=== PATIENT | male | born 1980 | race Caucasian/White ===

== ENCOUNTER 2023-11-08 20:13 | Emergency (ER) | payer BC, SELFPAY ==
[2023-11-08 20:23] VITALS: BP 144/92; PULSE 88; RESP 16; TEMP 36.4; O2SAT 97; BMI 28.8
--- NOTE | 2023-11-08 21:07 | ED.GENADULT ---
HPI - General Adult General Chief complaint: Laceration/Wound Stated complaint: laceration on left knee w/ chainsaw Time Seen by Provider: 11/08/23 20:16 Source: patient Mode of arrival: ambulatory Limitations: no limitations History of Present Illness HPI narrative: 43-year-old male coming in today with a laceration to the left knee. Patient was using a chainsaw to cut down some branches when he slipped and the chainsaw hit him in the leg. He is able to walk. He denies any other injury. Tetanus was updated in 2019. Related Data Home Medications ?Medication ?Instructions ?Recorded ?Confirmed albuterol sulfate 90 mcg/actuation inhalation 06/05/23 09/17/23 aerosol inhaler fexofenadine 180 mg tablet 180 mg PO DAILY 06/05/23 09/17/23 fluticasone 250 mcg-salmeterol 50 1 ea inhalation BID 06/05/23 09/17/23 mcg/dose blistr powdr for inhalation (Wixela Inhub) Previous Rx's ?Medication ?Instructions ?Recorded fluticasone propionate 50 1 spray intranasal BID #16 grams 09/17/23 mcg/actuation nasal spray,suspension (Flonase Allergy Relief) prednisone 20 mg tablet See Rx Instructions PO QDAY Cough 09/17/23 #12 tabs cephalexin 500 mg capsule 500 mg PO QID 5 days #20 caps 11/08/23 Allergies Allergy/AdvReac Type Severity Reaction Status Date / Time Penicillins Allergy Unknown Verified 09/17/23 14:51 Review of Systems Status of ROS: Reports: 6 or more systems reviewed and unremarkable except as noted in History and below Exam Narrative: Exam Narrative: Well-nourished well-developed patient in no acute distress. Alert and oriented. Answers questions appropriately. Mood and affect are appropriate. Thoughts are goal oriented and rational. No tangential or magical thinking noted. Patient speaks in full sentences without needing to catch his breath. HEENT: Normocephalic atraumatic. Pupils are equally round reactive to light. Extraocular muscles are intact. Conjunctivae are moist without any icterus noted. Moist mucous membranes. Extremities: Patient has an approximately 3 in laceration across the patella of the left knee. The laceration goes through the dermis into the subcutaneous tissue. The patella is visible. Suprapatellar and infrapatellar tendons appear to be intact. Patient has full range of motion of the knee with flexion and extension. Skin: Well perfused without any obvious rashes. Const: Vital Signs, click to edit/add: Vital Signs - 24 hr 11/08/23 20:23 Temperature 97.5 F L Pulse Rate [Pulse Oximeter] 88 Respiratory Rate 16 Blood Pressure [Ri ght Upper Arm] 144/92 H Pulse Oximetry 97 Oxygen Delivery Me thod Room Air Course Course ED Course: The area was anesthetized with 2% lidocaine. The wound was cleaned and explored. Three subcutaneous sutures were placed with 3 0 Vicryl followed by 11 sutures with 3-0 Ethilon. Patient tolerated the procedure well. Vital Signs Vital signs: Initial Vital Signs Temperature 97.5 F L 11/08/23 20:23 Temperature Source Temporal Artery Scan 11/08/23 20:23 Pulse Rate 88 11/08/23 20:23 Respiratory Rate 16 11/08/23 20:23 Blood Pressure 144/92 H 11/08/23 20:23 Blood Pressure Mean 109 H 11/08/23 20:23 Blood Pressure Position Sitting 11/08/23 20:23 Pulse Oximetry 97 11/08/23 20:23 Oxygen Delivery Method Room Air 11/08/23 20:23 Vital Signs Temperature 97.5 F L 11/08/23 20:23 Pulse Rate 88 11/08/23 20:23 Respiratory Rate 16 11/08/23 20:23 Blood Pressure 144/92 H 11/08/23 20:23 Pulse Oximetry 97 11/08/23 20:23 Oxygen Delivery Method Room Air 11/08/23 20:23 Temperature 97.5 F L 11/08/23 20:23 Pulse Rate 88 11/08/23 20:23 Respiratory Rate 16 11/08/23 20:23 Blood Pressure 144/92 H 11/08/23 20:23 Pulse Oximetry 97 11/08/23 20:23 Oxygen Delivery Method Room Air 11/08/23 20:23 Medical Decision Making MDM Narrative Medical decision making narrative: Large laceration to the knee sutured per above. Discharge Plan Discharge Clinical Impression: Laceration Patient Disposition: Home, Self-Care Condition: Improved Additional Instructions: Keep wound clean and dry. Do not soak such as taking baths or swimming. Follow-up in approximately 1 week for suture removal with your primary care provider. Watch for signs and symptoms of infection including increasing redness of the area, purulent drainage, or fever. If this occurs follow-up right away with your doctor or return to the ER. This will be unlikely as you will be prescribed antibiotics today which should be started tomorrow morning. Wear Chacho wrap around the knee at all times to decreased mobility of the knee. Prescriptions: New cephalexin 500 mg capsule 500 mg PO QID 5 Days Qty: 20 0RF No Action fluticasone propion-salmeterol [Wixela Inhub] 250-50 mcg/dose blister with device 1 ea inhalation BID fexofenadine 180 mg tablet 180 mg PO DAILY albuterol sulfate 90 mcg/actuation HFA aerosol inhaler inhalation fluticasone propionate [Flonase Allergy Relief] 50 mcg/actuation spray,suspension 1 spray intranasal BID Qty: 16 0RF Rx Instructions: administer into each nostril prednisone 20 mg tablet See Rx Instructions PO QDAY Qty: 12 0RF Rx Instructions: 3 po as single dose days 1-2, 2 po as single dose days 3-4, 1 po days 5-6, then discontinue. Follow Up/Referrals: Camille Sarmiento DO [Primary Care Provider] - Stand Alone Forms: [employer] Info Instructions
--- OUTSIDE RECORDS SUMMARY | 2023-11-08 21:26 | XMS_ITS | Clinical Summary ---
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 Active fluticasone propion-salmeteroL (Advair Diskus) 250-50 mcg/Dose diskus inhalerIndications:A sthma, mild intermittent, well-controlled Inhale 1 Puff by mouth two times daily. 180 Each 3 05/26/2023 Active albuterol HFA (Ventolin HFA) 90 mcg/actuation inhalerIndications:A sthma, mild intermittent, well-controlled Inhale 1-2 Puffs by mouth every 4 hours if needed for Shortness of Breath 1st choice. 18 g 3 07/07/2023 Active albuterol 0.083% (2.5 mg/3 mL) neb solutionIndications: Asthma, mild intermittent, well-controlled Inhale 3 mL (2.5 mg) via a nebulizer every 6 hours if needed for Shortness Of Breath, Wheezing or Cough. 100 mL 07/07/2023 Active omeprazole (PriLOSEC OTC) 20 mg tabletIndications:Ch ronic GERD Take 1 Tablet (20 mg) by mouth once daily. 90 Tablet 3 07/07/2023 Active omeprazole (PRILOSEC) 20 mg Delayed-Release capsuleIndications:C hronic GERD Take 1 Capsule (20 mg) by mouth once daily before a meal. Take 30 minutes prior to a meal 90 Capsule 3 07/08/2023 Active fexofenadine (INES) 180 mg tabletIndications:Se asonal allergic rhinitis, unspecified trigger TAKE 1 TABLET BY MOUTH EVERY DAY WITH FOOD 90 Tablet 3 09/29/2023 Active Active Problems Problem Noted Date Diagnosed Date Seasonal allergic rhinitis 07/07/2023 Gastroesophageal reflux 07/07/2023 Asthma 10/01/2002 Overview: Asthma NOS Asthma, mild intermittent, well-controlled Resolved Problems Problem Noted Date Diagnosed Date Resolved Date History of cholecystectomy 07/07/2023 0 07/07/2023 MRSA (methicillin resistant Staphylococcus aureus) 08/26/2013 07/07/2023 Encounters Date Type Department Care Team Description 09/28/2023 Refill [facility] [address] [place] [address] Camille Sarmiento, Refill Request (Fexofenadine) from Last 3 Months Immunizations Name Administration Dates Next Due COVID-19 vaccine ([employer] NTShoplocal 30mcg/0.3mL) 12YO+ BIVALENT PF, MDV 03/13/2022 Influenza, IIV4 03/13/2022,06/08/2018,12/28/2014 Pneumococcal Conj 20-valent (Prevnar 20) 022 Td (Age >=7 Years) 06/08/2018 Tdap 12/15/2007 Family History Medical History Relation Name Comments Good Health Brother 2 Good Health Father Diabetes Maternal Grandmother Good Health Mother Hypertension Mother Diabetes Paternal Grandmother Relation Name Status Comments Brother 1 Alive Brother 2 Father Alive Maternal Grandmother Mother Alive Paternal Grandmother Social History Tobacco Use Types Packs/Day Years Used Date Smoking Tobacco: Never Smokeless Tobacco: Never Tobacco Cessation:Counseling Given: Yes Alcohol Use Standard Drinks/Week Comments Yes 0 (1 standard drink = 0.6 oz pur e alcohol) minimal PHQ-2 Answer Date Recorded PHQ-2 TOTAL SCORE 0 07/07/2023 Social Connections Answer Date Recorded Frequency of Communication with Friends and Fami ly 0 07/07/2023 Alcohol Use Answer Date Recorded How often do you have a drink containing alcohol ? 1 03/13/2022 How many drinks containing a lcohol do you have on a typical day when you are drinking? 0 03/13/2022 How often do you have five or more drinks on one occasion? 0 03/13/2022 Financial Resource Strain Answer Date R ecorded Difficulty of Paying Living Expenses 3 07/07/2023 Difficulty of Paying Living Expenses Not on file 07/07/2023 Food Insecurity Answer Date Recorded Worried About Running Out of Food in the Last Ye ar 1 07/07/2023 Transportation Needs Answer Date Record ed Lack of Transportation (Medical) 1 07/07/2023 Housing Stability Answer Date Recorded Unable to Pay for Housing in the Last Year 1 07/07/2023 Sex and Gender Information Value Date Recorded Sex Assigned at Not on file Gender Identity Not on file Sexual Orientation Not on file Obstetrics History Last Filed Vital Signs Vital Sign Reading Time Taken Comments Blood Pressure 132/89 07/07/2023 7:52 AM CDT Pulse 97 07/07/2023 7:52 AM CDT Temperature 36.3 ??C (97.4 ??F) 09/24/2022 1 0:55 AM CDT Respiratory Rate 16 03/08/2020 2:32 PM MANAGER CONTRACT Oxygen Saturation 96% 07/07/2023 7:52 AM CDT Inhaled Oxygen Concentration - - Weight 100.5 kg (221 lb 9.6 oz) 07/07/2023 7:52 AM CDT Height 173.2 cm (5' 8.19) 07/07/2023 7:52 AM CD T Body Mass Index 33.51 07/07/2023 7:52 AM CDT Plan of Treatment Health Maintenance Due Date Last Done Comments COVID-19 vaccine series ( season) 2022 03/13/2022, 03/25/2021, 08/10/2020, Additional history exists Influenza for age 9-49 12/27/2023 , 06/08/2018, 12/28/2014 BMI (ht and wt on same day) for age 18+ 07/06/2024 07/07/2023, 03/13/2022, 11/21/2020, Additional history exists Depression screening for age 12+ 07/06/2024 07/07/2023, 07/07/2023, 05/26/2023, Additional history exists Tetanus booster 06/08/2028 06/08/2018, 12/15/2007 Lipids for age 35-44 07/03/2028 07/04/2023, 09/15/2016, 03/28/2013, Additional history exists Tdap Completed 12/15/2007 Pneumococcal series for age 6-64 Aged Out 11/28/2021 No longer eligible based on patient's age to complete this topic HIV for age 15-65 Completed 07/04/2023 Hepatitis C screening for age 18-79 Completed 07/04/2023 Procedures Procedure Name Priority Date/Time Associated Diagnosis Comments ANTI HIV 1/2 Routine 07/04/2023 9:44 AM MANAGER CONTRACT Screening for HIV (human immunodeficiency virus) ANTI HCV Routine 07/04/2023 9:44 AM MANAGER CONTRACT Need for hepatitis C screening test LIPID PANEL W REFLEX MEASURED LDL Routine 07/04/2023 9:44 AM MANAGER CONTRACT Screening for lipid disorders from Last 3 Months or Most Recently Relevant to Health Maintenance Results * (ABNORMAL) LIPID PANEL W REFLEX MEASURED LDL [[id number]] (07/04/2023 9:44 AM MANAGER CONTRACT) CHOLESTEROL,TOTAL 187 100 - 199 mg/dL 07/04/2023 10:06 AM [facility] Comment: Cholesterol, Total Reference Ranges Desirable <200 mg/dL Borderline 200-239 mg/dL High >=240 mg/dL TRIGLYCERIDES 181(H) <150 mg/dL 07/04/2023 10:06 AM [facility] HDL CHOLESTEROL 40(L) >40 mg/dL 10:06 AM [facility] NON-HDL CHOLESTEROL 147(H) <145 mg/dl 07/04/2023 10:06 AM [facility] CHOL/HDL RATIO 4.68(H) <4.50 07/04/2023 10:06 AM [facility] LDL CHOLESTEROL 111 <=130 mg/dL 07/04/2023 10:06 AM [facility] VLDL CHOLESTEROL 36(H) <=30 mg/dL 07/04/2023 10:06 AM MANAGER CONTRACT [facility] PROVIDER ORDERED STATUS RANDOM 07/04/2023 10:06 AM [facility] Blood BLOOD SPECIMEN / Unknown Venipuncture / Unknown 07/04/2023 9:44 AM MANAGER CONTRACT 07/04/2023 9:46 AM MANAGER CONTRACT Lizette Torres MD CHEMISTRY [facility] [address] [place] [address] * ANTI HCV (07/04/2023 9:44 AM MANAGER CONTRACT) HEPATITIS C ANTIBODY Non-Reacti ve Non-React paula 07/04/2023 2:55 PM MANAGER CONTRACT [facility] Comment:Please note, per www .CDC.gov: If a patient is known to be at high risk of HCV infection, or is symptomatic, and the physician's suspicion of HCV infection is high, HCV RNA testing is often employed and is of diagnostic value, even after an initial negative anti-HCV test result. Blood BLOOD SPECIMEN / Unknown Venipuncture / Unknown 07/04/2023 9:44 AM MANAGER CONTRACT 07/04/2023 9:46 AM MANAGER CONTRACT Lizette Torres MD SEND [facility] [address] [place] [address], * ANTI HIV 1/2 [99752.0] (07/04/2023 9:44 AM MANAGER CONTRACT) HIV-1/HIV-2 SCREEN Non-Reacti ve Non-Reacti ve 07/04/2023 2:58 PM MANAGER CONTRACT [facility] Comment:HIV-1 p24 and HIV-1/ HIV-2 Ab Not Detected. Blood BLOOD SPECIMEN / Unknown Venipuncture / Unknown 07/04/2023 9:44 AM MANAGER CONTRACT 07/04/2023 9:46 AM MANAGER CONTRACT Lizette Torres MD SEND [facility]S [facility] [address] [place] [address], from Last 3 Months or Most Recently Relevant to Health Maintenance Advance Directives * Full Code (Latest Code Status on File) Date Activated Date Inactivated Comments 02/24/2011 9:50 AM 02/24/2011 6:13 PM Care Teams Field Crops Harvest Machine Operator Relationship Specialty Start Date End Date Camille Sarmiento DO [facility] [place] [address] PCP - General Family Practice 05/21/15
--- OUTSIDE RECORDS SUMMARY | 2023-11-08 21:26 | XMS_ITS | Clinical Summary ---
Author Organization [facility] Address [address] [place] [address] Care Team Providers Care Platform Worker Name Role Phone Letty Lubin Primary Care Provider [phone] Source Comments You are receiving this document as you are listed as the primary care provider,follow-up provider, or the patient has been referred to you for consultation.This is in compliance with the Medicare and[facility] EHR Incentive Program,which states Providers who transition their patient to another setting of careor provider of care or refers their patient to another provider of care shouldprovide summary care record for each transition of care or referral. Lyks Allergies Active Allergy Reactions Criticality Noted Date Comments Penicillins 07/14/2001 Medications Medication Sig Dispensed Refills Start Date End Date Status terbinafine (LAMISIL) 250 MG tablet Take 1 tablet by mouth daily (every 24 hours). 30 3 05/27/2005 Active Albuterol Sulfate 108 (90 BASE) MCG/ACT AEPB Take 1-2 puffs by mouth every 4 hours as needed. LW Addl Instr:Indicated for: Asthma 51 3 05/14/2005 Active unknown medication Indications: PN: 10/04/2003 Active Active Problems Problem Noted Date Diagnosed Date Asthma 10/01/2002 Overview: Asthma NOS Immunizations Name Administration Dates Next Due HepB Adult (Engerix-B, 20+ yrs, 3 dose series) 1 06/12/1997 MMR 12/19/1993 Td 04/11/1998 Social History Tobacco Use Types Packs/Day Years Used Date Smoking Tobacco: Never Assessed Sex and Gender Information Value Date Recorded Sex Assigned at Not on file Gender Identity Not on file Sexual Orientation Not on file Plan of Treatment Health Maintenance Due Date Last Done Comments Hep C Screening (Preventive Services) 1980 Asthma ACT 1984 Pneumococcal (1 - PCV) 1986 HIV Screening (Preventive Services) 1996 HepB (2) 05/09/1998 04/11/1998 Adult Preventive Visit 1998 Cholesterol 09/26/2015 04/11/1998 COVID-19 Vaccine (3 - 2022-2 4 season) 2022 08/10/2020, 07/20/2020 Influenza (#1) 2023 06/08/2018, 12/28/2014 DTaP/Tdap/Td (4 - Tdap) 06/08/2028 06/08/19 19, 12/15/2007, 04/11/1998 Zoster/Shingles (1 of 2) 2030 HPV Vaccine Aged Out No longer eligi ble based on patient's age to complete this topic HepA Aged Out No longer eligi ble based on patient's age to complete this topic Hib Aged Out No longer eligi ble based on patient's age to complete this topic IPV (Polio) Aged Out No longer eligi ble based on patient's age to complete this topic MCV4 Aged Out No longer eligi ble based on patient's age to complete this topic Procedures Procedure Name Priority Date/Time Associated Diagnosis Comments CHOLESTEROL (TOTAL) Routine 04/11/1998 4 :00 PM MUCK BOSS from Last 3 Months or Most Recently Relevant to Health Maintenance Results * Cholesterol (Total) (04/11/1998 4:00 PM MUCK BOSS) Cholesterol 175 125 - 199 mg/dL HP CONVERSION 04/11/1998 4:00 PM MUCK BOSS Cheng Horta MD LAB_1 HP CONVERSION from Last 3 Months or Most Recently Relevant to Health Maintenance Care Teams Platform Worker Relationship Specialty Start Date End Date Letty Lubin MBBS [address] [place] [address] PCP - General 07/29/10
== END 2023-11-08 21:49 | disposition home or self-care (01) ==
LOC: ED 21:25
PROVIDERS: Emergency Provider Family Medicine; PCP Family Medicine
DX: S81.012A Laceration without foreign body, left knee, initial encounter (principal); W29.3XXA Contact with powered garden and outdoor hand tools and machinery, initial encounter
CPT/HCPCS: 12002; 99283; 99284